=== PATIENT | female | born 1975 | race Caucasian/White ===

== ENCOUNTER 2016-11-29 23:42 | Inpatient (IN) | payer SELFPAY ==
--- NOTE | 2016-11-30 00:17 | DR.GENAD ---
HPI - PCP Primary Care Physician: NFD - Complaint/Symptoms Chief Complaint:: PT STATES" I'VE HAD THIS COUGH FOR AT LEAST 2 MONTHS IT ONLY COMES ON AFTER I GO TOO BED AND I GET REAL SHORT OF BREATH AND SOME CHEST PAIN " - Nurses notes reviewed Nurses Notes Review: Yes - Source History Provided: Patient - Mode of Arrival Mode of Arrival: Ambulatory - Timing Onset of Chief Complaint: 10/24/16 Came on: Gradually - Duration Duration: Intermittent How lon Duration: Days - Location Location: chest - Severity Severity: Moderate - Modifying Factors Worsens:: at night Improves:: sitting up - Associated Signs and Symptoms Associated Signs and Symptoms: legs swell PMH - PMH Past Medical History: No Past Surgical History: Yes Past Surgical History Comment: BREAST REDUCTION, TUBALIGATION - Family History History of Family Medical Conditions: No - Social History Alcohol Use: None Do you use any recreational Drugs:: No Lives With: Family Lives Where: Home - infectious screening In the last 2 months have you had wt loss of >10#?: NO Have you had fever, night sweats or hemotysis?: No Have you traveled outside the country in the last 6 months?: No Isolation: Standard ROS - Review of Systems Constitutional: No Symptoms Reported Eyes: No Symptoms Reported ENTM: No Symptoms Reported Respiratoy: Dry Cough, Short of Breath Cardiovascular: Edema Gastrointestinal/Abdominal: No Symptoms Reported Genitourinary: No Symptoms Reported Neurological: No Symptoms Reported Musculoskeletal: No Symptoms Reported Integumentary: No Symptoms Reported Hematologic/Lymphatic: No Symptoms Reported Endocrine: No Symptoms Reported Psychiatric: No Symptoms Reported All Other Systems: Reviewed and Negative PE - Vital Signs Vitals: Temperature 99 F Pulse Rate [Apical] 102 Pulse Rate 140 Respiratory Rate 18 Blood Pressure [Right Arm] 145/75 Blood Pressure 200/104 O2 Sat by Pulse Oximetry 97 - General Limitations: No Limitations General Appearance: Alert, In No Apparent Distress - Head Head Exam: Normal Inspection - Eyes Eye exam: Normal Appearance, EOMI. negative: Scleral Icterus, Conjunctival Injection - ENT ENT Exam: Normal Exam, Normal Oropharynx External Ear Exam: Normal External Inspection Mouth Exam: Normal Inspection - Neck Neck Exam: Normal Inspection, Full ROM, Trachea Midline - Chest Chest Inspection: Normal Inspection - Respiratory Respiratory Exam: negative: Normal Lung Sounds Bilat (ralse present), Accessory Muscle Use, Respiratory Distress Respiratory Exam: Bilateral Rales, Lower Rales - Cardiovascular Cardiovascular Exam: Tachycardia - Abdominal Exam Abdominal Exam: Normal Inspection, Normal Bowel Sounds, Soft - Extremities Extremities Exam: Edema (trace) - Back Back Exam: Normal Inspection - Neurologic Neurological Exam: Alert, Oriented X3, CN II-XII Intact - Psychiatric Psychiatric Exam: Anxious - Skin Skin Exam: Intact, Normal Color Course - Consultation Called: 01:30 Call Returned: 02:30 Consultation Comments: Case discussed with DR. Wills admit for CHF and diabetes ROR - Labs Reviewed Result Diagrams: 11/30/16 00:26 11/30/16 00:26 Laboratory: WBC 9.4 X10^3/uL (3.6-10.0) 11/30/16 00:26 RBC 4.85 X10^6/uL (3.5-5.4) 11/30/16 00:26 Hgb 11.1 g/dL (12.0-16.0) L 11/30/16 00:26 Hct 34.8 % (36.0-47.0) L 11/30/16 00:26 MCV 71.7 fL (80.0-100.0) L 11/30/16 00:26 MCH 22.9 pg (27.0-34.0) L 11/30/16 00:26 MCHC 32.0 g/dL (33.0-35.0) L 11/30/16 00:26 RDW 16.4 % (11.6-16.5) 11/30/16 00:26 Plt Count 441 X10^3/uL (150.0-450.0) 11/30/16 00:26 Plt Count Comment Adequate (ADEQUATE) 11/30/16 00:26 MPV 7.8 fL (7.4-11.0) 11/30/16 00: Neut % 63.1 % (42.0-75.0) 11/30/16 00:26 Lymph % 27.3 % (21.0-51.0) 11/30/16 00:26 Starr % 7.3 % (0.0-13.0) 11/30/16 00:26 Eos % 1.6 % (0.9-2.9) 11/30/16 00:26 Baso % 0.7 % (0.2-1.0) 11/30/16 00:26 Neut # 5.9 x10^3/uL (2.2-4.8) H 11/30/16 00: Lymph # 2.6 X10^3/uL (1.3-2.9) 11/30/16 00: Starr # 0.7 x10^3/uL (0.3-0.8) 11/30/16 00: Eos # 0.2 x10^3/uL (0.0-0.2) 11/30/16 00: Baso # 0.1 X10^3/uL (0.0-0.1) 11/30/16 00: Absolute Nucleated RBC 0.1 /100WBC 11/30/16 00:26 Plt Morphology Comment Normal (NORMAL) 11/30/16 00: RBC Morphology Abnormal (NORMAL) A 11/30/16 00: Hypochromasia 1+ A 11/30/16 00: Microcytosis 1+ A 11/30/16 00:26 Sodium 141 mmol/L (136-145) 11/30/16 00:26 Corrected Sodium 145 mmol/L (136-145) 11/30/16 00:26 Potassium 3.4 mmol/L (3.5-5.1) L 11/30/16 00: Chloride 105 mmol/L (98-107) 11/30/16 00: Carbon Dioxide 22.5 mmol/L (21-32) 11/30/16 00:26 BUN 10 mg/dL (7-18) 11/30/16 00: Creatinine 0.75 mg/dL (0.55-1.02) 11/30/16 00:26 Est GFR (MDRD) Af Amer > 60 (>60) 11/30/16 00:26 Est GFR (MDRD) Non-Af > 60 (>60) 11/30/16 00:26 Glucose 272 mg/dL (65-99) H 11/30/16 00:26 Calcium 8.8 mg/dL (8.5-10.1) 11/30/16 00:26 Corrected Calcium 9.6 mg/dL (8.5-10.1) 11/30/16 00: Total Bilirubin 0.30 mg/dL (0.2-1.0) 11/30/16 00:26 AST 109 Units/L (15-37) H 11/30/16 00:26 ALT 92 Units/L (12-78) H 11/30/16 00:26 Alkaline Phosphatase 153 Units/L (46-116) H 11/30/16 00:26 Creatine Kinase 86 Units/L (26-192) 11/30/16 00:26 CK-MB (CK-2) < 1.0 ng/mL (0-4.0) 11/30/16 00: CK/CKMB % Calc 1.2 % (<4) 11/30/16 00:26 Troponin I 0.04 ng/mL (0-1.5) 11/30/16 00:26 B-Natriuretic Peptide 279 pg/mL (0-79) H 11/30/16 00:26 Total Protein 7.3 g/dL (6.4-8.2) 11/30/16 00:26 Albumin 3.0 g/dL (3.4-5.0) L 11/30/16 00:26 Globulin 4.3 g/dL (2.5-4.5) 11/30/16 00:26 Albumin/Globulin Ratio 0.7 Ratio (1.1-2.1) L 11/30/16 00:26 - XRAY XRAY Findings: Chest: CHF - EKG Rate: 135 [place]: Normal Rhythm: ST Block: None Hypertrophy: None ST: Normal - Diagnosis Discharge Problem: Diabetes mellitus, new onset CHF (congestive heart failure) Qualifiers: Congestive heart failure type: unspecified congestive heart failure type Congestive heart failure chronicity: acute Qualified Code(s): I50.9 - Heart failure, unspecified - Discharge Plan Condition: Stable - Follow ups/Referrals Follow ups/Referrals: NFD,None [Primary Care Provider] - 3 days - Instructions
[2016-11-30] MEDS ORDERED: LOPRESSOR INJ 5 MG AMP IVP ONE (00:20)
[2016-11-30] MEDS ORDERED: LASIX IVP ONE (00:22)
[2016-11-30] MEDS ORDERED: LOPRESSOR INJ 5 MG AMP ONE (00:22)
[2016-11-30] MEDS ORDERED: LASIX ONE (00:30)
--- NOTE | 2016-11-30 00:40 | RAD ---
EXAM: Chest X-ray INDICATION: Cough COMPARISION: No prior TECHNIQUE: Single view FINDINGS: The lungs are clear and the lung volumes are within normal limits. No pleural effusion or pneumothor ax. The cardiac silhouette is mildly enlarged and there central vascular congestion. The regional s keleton is intact. IMPRESSION: There is mild cardiomegaly and central vascular congestion. Reported By:
[2016-11-30 00:43] LABS: BASOPHILS # (AUTO) 0.1 X10^3/uL (0.0-0.1); BASOPHILS % (AUTO) 0.7 % (0.2-1.0); EOSINOPHILS # (AUTO) 0.2 x10^3/uL (0.0-0.2); EOSINOPHILS % (AUTO) 1.6 % (0.9-2.9); HEMATOCRIT 34.8 % (36.0-47.0); HEMOGLOBIN 11.1 g/dL (12.0-16.0); LYMPHOCYTES # (AUTO) 2.6 X10^3/uL (1.3-2.9); LYMPHOCYTES % (AUTO) 27.3 % (21.0-51.0); MEAN CORPUSCULAR HEMOGLOBIN 22.9 pg (27.0-34.0); MEAN CORPUSCULAR VOLUME 71.7 fL (80.0-100.0); MEAN PLATELET VOLUME 7.8 fL (7.4-11.0); MONOCYTES # (AUTO) 0.7 x10^3/uL (0.3-0.8); MONOCYTES % (AUTO) 7.3 % (0.0-13.0); NEUTROPHILS # (AUTO) 5.9 x10^3/uL (2.2-4.8); NEUTROPHILS % (AUTO) 63.1 % (42.0-75.0); PLATELET COUNT 441 X10^3/uL (150.0-450.0); RED BLOOD COUNT 4.85 X10^6/uL (3.5-5.4); RED CELL DISTRIBUTION WIDTH 16.4 % (11.6-16.5); WHITE BLOOD COUNT 9.4 X10^3/uL (3.6-10.0)
[2016-11-30] MEDS ORDERED: NITROSTAT SL PRN (00:49)
[2016-11-30 00:54] LABS: BLOOD UREA NITROGEN 10 mg/dL (7-18); CALCIUM 8.8 mg/dL (8.5-10.1); CARBON DIOXIDE 22.5 mmol/L (21-32); CHLORIDE 105 mmol/L (98-107); COR NA(FOR HYPERGLY) 145 mmol/L (136-145); CREATININE 0.75 mg/dL (0.55-1.02); GLUCOSE 272 mg/dL (65-99); SODIUM 141 mmol/L (136-145); TROPONIN I 0.04 ng/mL (0-1.5); eGFR BLACK RACES > 60 (>60); eGFR NON BLACK RACES > 60 (>60)
[2016-11-30 01:04] LABS: HYPOCHROMASIA 1+; MICROCYTOSIS 1+; PLATELET MORPHOLOGY COMMENT NORMAL (NORMAL)
[2016-11-30 01:09] LABS: ALANINE AMINOTRANSFERASE 92 Units/L (12-78); ALKALINE PHOSPHATASE 153 Units/L (46-116); ASPARTATE AMINO TRANSFERASE 109 Units/L (15-37); CKMB % 1.2 % (<4); COR CA(FOR HYPOALB) 9.6 mg/dL (8.5-10.1); CREATINE KINASE 86 Units/L (26-192); CREATINE KINASE MB < 1.0 ng/mL (0-4.0); TOTAL PROTEIN 7.3 g/dL (6.4-8.2)
[2016-11-30] MEDS ORDERED: HumuLIN R IV ONE (01:14)
[2016-11-30] MEDS ORDERED: MICRO K EXTEN CAP 10 MEQ PO ONE ×2 (01:21→01:28)
[2016-11-30] MEDS ORDERED: NORMODYNE INJ 100 MG VIAL IVP ONE (01:32)
[2016-11-30] MEDS ORDERED: NORMODYNE INJ 20 MG VIAL ONE (01:34)
[2016-11-30] MEDS ORDERED: HumaLOG SC PRN (02:37)
[2016-11-30 03:21] VITALS: BMI 25.4
[2016-11-30] MEDS: HumaLOG SC PRN ×4 (05:55→21:11)
[2016-11-30] MEDS ORDERED: TYLENOL 325 MG TAB PO PRN (05:59)
[2016-11-30] MEDS ORDERED: HumaLOG SC SCH (06:30)
[2016-11-30 07:02] LABS: CHOL/HDL RATIO 5.3 (0.0-5.0); CKMB % 1.5 % (<4); CREATINE KINASE 69 Units/L (26-192); CREATINE KINASE MB < 1.0 ng/mL (0-4.0); TROPONIN I 0.05 ng/mL (0-1.5)
[2016-11-30] MEDS: LASIX IVP SCH (08:51)
[2016-11-30] MEDS: LOPRESSOR TAB 50 MG PO SCH ×2 (08:51→21:14)
[2016-11-30] MEDS: ZESTRIL TAB 10 MG PO SCH (08:51)
[2016-11-30 13:32] LABS: CKMB % 1.6 % (<4); CREATINE KINASE 63 Units/L (26-192); CREATINE KINASE MB < 1.0 ng/mL (0-4.0); TROPONIN I 0.03 ng/mL (0-1.5)
[2016-11-30] MEDS ORDERED: NS 100 ML IV 100 ML IV ONE (17:41)
--- NOTE | 2016-11-30 18:05 | DR.H&P ---
H&P - History & Physical for Day of: H&P Date: 11/30/16 - Chief Complaint Chief Complaint: COUGH, SOB, CHEST PRESSURE - Allergies Allergies/Adverse Reactions: Allergies Allergy/AdvReac Type Severity Reaction Status Date / Time No Known Drug Allergy Allergy Verified 11/29/16 23:49 - History of Present Illness History of Present Illness: 41 WF ADMITTED FROM ER AFTER PRESENTING WITH CO COUGH AND SHORTENESS OF BREATH. PT STATES COUGH WORSE AT NIGHT AND FEELS LIKE SHE WITH SMOOTHERING, WITH CHEST PRESSURE. PT CXR REVEALED CARDIOMEGALY AND PULMONARY CONGESTION. PT ALSO HAD HYPERGLYCEMIA, NO HX DIABETES. PT STATES NO REGULAR MEDS AND HX OF PIHTN, PT'S CHILDREN ARE ADULTS. PTS FATHER HAS SEVERE CAD, PAD WITH AMPUTATION. PT ADMITTED FOR SERIAL CE, EKG'S , BP AND BLOOD PRESSURE CONTROL. - Past Medical History Additional Medical History: INDUCED HYPERTENSION, RESOLVED WITH DELIVARY - Family History Family Medical History: Coronary Artery Disease, Heart Failure, Hypertension - Social History Does patient currently use any type of tobacco product: No Alcohol Use: None Drug Use: None - Medications Home Medications: NK [NK] 11/30/16 [History Confirmed 11/30/16] - Review of Systems Constitutional: Weakness Eyes: No Symptoms Reported ENT: No Symptoms Reported Respiratory: Cough, Shortness of Breath Cardiovascular: Other (CHEST PRESSURE) Gastrointestinal: No Symptoms Reported Genitourinary: No Symptoms Reported Musculoskeletal: No Symptoms Reported Skin: No Symptoms Reported - Physical Exam Vital Signs: Temperature 98 F Pulse Rate [Right Brachial] 96 Respiratory Rate 18 Blood Pressure [Right Arm] 126/74 O2 Sat by Pulse Oximetry 95 Oriented: Normal Eyes: Normal Ear: Normal Nose: Normal Throat: Normal Respiratory: RLL Diminished, LLL Diminished Cardiovascular: Normal Auscultation: Bowel Sounds: Normal Palpation: Normal Tenderness: Normal Skin: Normal Musculoskeletal: Normal Mood Description: Calm Speech Pattern: Clear, Appropriate - Assessment/Plan (1) Diabetes mellitus, new onset Status: Acute Plan: ADMIT, SSI, A1C. DIABETIC TEACHING ON ADMISSION. BS AC& HS. ENCOURAGE ORAL HYDRATION, REPEAT AM LABS (2) CHF (congestive heart failure) Qualifiers: Congestive heart failure type: unspecified congestive heart failure type Congestive heart failure chronicity: acute Qualified Code(s): I50.9 - Heart failure, unspecified Status: Acute Plan: SERIAL CE, EKG,. BP AND LIPID CONTROL, ECHO, TELEMETRY. REPEAT AM CXR, ASPIRIN, STATIN, STRICT I & OS (3) Hypertension Qualifiers: Hypertension type: H Status: Acute Plan: SEE ABOVE, CTA RENAL ARTERIES R/O RA STENOSIS (4) Chronic cough Status: Acute (5) Chest pressure Status: Acute Plan: SEE ABOVE
[2016-11-30] MEDS ORDERED: SNACK - Diabetic Appropriate PO SCH (20:00)
[2016-11-30] MEDS: ASPIRIN EC 81 MG PO SCH (20:27)
[2016-12-01] MEDS: HumaLOG SC PRN ×2 (05:47→13:13)
[2016-12-01 06:09] LABS: BASOPHILS # (AUTO) 0.1 X10^3/uL (0.0-0.1); BASOPHILS % (AUTO) 0.8 % (0.2-1.0); EOSINOPHILS # (AUTO) 0.3 x10^3/uL (0.0-0.2); EOSINOPHILS % (AUTO) 3.3 % (0.9-2.9); LYMPHOCYTES # (AUTO) 2.4 X10^3/uL (1.3-2.9); LYMPHOCYTES % (AUTO) 30.9 % (21.0-51.0); MEAN CORPUSCULAR HEMOGLOBIN 23.3 pg (27.0-34.0); MEAN CORPUSCULAR HGB CONC 32.4 g/dL (33.0-35.0); MEAN CORPUSCULAR VOLUME 72.1 fL (80.0-100.0); MEAN PLATELET VOLUME 8.2 fL (7.4-11.0); MONOCYTES # (AUTO) 0.6 x10^3/uL (0.3-0.8); MONOCYTES % (AUTO) 8.4 % (0.0-13.0); NEUTROPHILS # (AUTO) 4.3 x10^3/uL (2.2-4.8); NEUTROPHILS % (AUTO) 56.6 % (42.0-75.0); PLATELET COUNT 365 X10^3/uL (150.0-450.0); RED BLOOD COUNT 4.31 X10^6/uL (3.5-5.4); RED CELL DISTRIBUTION WIDTH 16.7 % (11.6-16.5); WHITE BLOOD COUNT 7.6 X10^3/uL (3.6-10.0)
[2016-12-01 06:26] LABS: ALANINE AMINOTRANSFERASE 81 Units/L (12-78); ALBUMIN 2.6 g/dL (3.4-5.0); ALKALINE PHOSPHATASE 114 Units/L (46-116); ASPARTATE AMINO TRANSFERASE 49 Units/L (15-37); BLOOD UREA NITROGEN 18 mg/dL (7-18); CALCIUM 8.5 mg/dL (8.5-10.1); CHLORIDE 107 mmol/L (98-107); COR CA(FOR HYPOALB) 9.6 mg/dL (8.5-10.1); COR NA(FOR HYPERGLY) 145 mmol/L (136-145); CREATININE 0.68 mg/dL (0.55-1.02); GLUCOSE 178 mg/dL (65-99); SODIUM 143 mmol/L (136-145); TOTAL PROTEIN 6.5 g/dL (6.4-8.2); eGFR BLACK RACES > 60 (>60); eGFR NON BLACK RACES > 60 (>60)
[2016-12-01 06:36] LABS: HYPOCHROMASIA 1+; MICROCYTOSIS SLIGHT; PLATELET MORPHOLOGY COMMENT NORMAL (NORMAL)
--- NOTE | 2016-12-01 06:37 | CT ---
Reported By: abdomen and pelvis with and without contrast Indication: Hypertension, evaluation for renal arterial stenosis. Technique: 3 mm axial images of the abdomen pelvis before IV contrast administration with coronal an d sagittal reformatted images with subsequent 3 mm axial images of the abdomen pelvis post IV contra st with coronal and sagittal reformatted images. No at and 3D reconstructed imaging of the abdominal aorta was performed on an independent workstation. Reduction in kV and mA was performed along with automated exposure control for radiation dose reduct ion. Nonvascular findings: Dense consolidation within the right lower and middle lobes consistent with pn eumonia. Small bilateral pleural effusions. The The liver, gallbladder, bile ducts, spleen, pancreas and adrenal glands are normal. Neither kidney d emonstrates evidence of nephrolithiasis, hydronephrosis or mass. Upper GI tract without evidence of mass or obstruction. Small fat containing periumbilical hernia. Urinary bladder is unremarkable. No pelvic or adnexal mass. Small amount of pelvic free fluid. The rectum and colon along with the appen brendon are normal. No adenopathy. Vascular findings: The descending thoracic aorta is normal. The suprarenal abdominal aorta is normal . There is widely patent SMA, hepatic, splenic, left gastric arteries, SMA and bilateral single lindsey l arteries. HOWARD is widely patent. The infrarenal abdominal aorta is normal in caliber. The iliac and common femoral arteries are widely patent bilaterally. Impression: 1.Right middle and lower lobe pneumonia with small bilateral pleural effusions. 2. Normal CT angiogram of the abdominal aorta and its branch vessels, specifically bilateral single renal arteries are widely patent without significant calcified atherosclerotic disease , stenosis or evidence of fibromuscular dysplasia. 3. Refer to above for other incidental findings.
[2016-12-01] MEDS: LOPRESSOR TAB 50 MG PO SCH (09:23)
[2016-12-01] MEDS: ASPIRIN EC 81 MG PO SCH (09:23)
[2016-12-01] MEDS: LASIX IVP SCH (09:23)
[2016-12-01] MEDS: ZESTRIL TAB 10 MG PO SCH (09:23)
[2016-12-01] MEDS ORDERED: DUONEB 0.5 MG/3 MG ONE (11:17)
[2016-12-01] MEDS ORDERED: SALINE 3% 15 ML NEB TX ONE (11:17)
[2016-12-01] MEDS ORDERED: SALINE 3% 15 ML NEB TX NEB ONE (11:19)
[2016-12-01] MEDS: DUONEB 0.5 MG/3 MG NEB SCH ×2 (11:20→14:08)
[2016-12-01 12:58] VITALS: BP 111/61
== END 2016-12-01 13:55 | disposition short-term general hospital (02) | DRG 293 ==
LOC: ER 23:42 → OBSVTOIN 11-30 02:33 → MED/SURG 11-30 02:33
PROVIDERS: ADMIT Internal Medicine; ATTEND Internal Medicine
DX: I50.9 Heart failure, unspecified (principal); R07.89 Other chest pain; R06.02 Shortness of breath; R94.31 Abnormal electrocardiogram [ECG] [EKG]; E11.65 Type 2 diabetes mellitus with hyperglycemia; I51.7 Cardiomegaly
CPT/HCPCS: 36415; 71010; 74174; 80053; 80061; 82550; 82553; 83036; 83880; 84484; 85025; 85378; 85610; 87040; 93005; 93010; 93306; 94640; 94760; 96365; 96374; 96375; 99284; A4216; A4222; J1815; J1817; J1940; J3490; J7620

== ENCOUNTER 2017-01-16 07:34 | Emergency (ER) | payer SELFPAY ==
[2017-01-16 07:42] VITALS: BP 188/92; BMI 24.5
--- NOTE | 2017-01-16 08:29 | DR.GENAD ---
HPI - PCP Primary Care Physician: HELGA - Complaint/Symptoms Chief Complaint Doctors Comments: History as stated. Denies fever or pain. She was seen in follow up two weeks ago and released by taxicab starter. Chief Complaint:: OPEN HEART INCISION OPENING UP. CABG DECEMBER 05 2016 Self Treatment fo Chief Complaint: BETADINE solution - Source History Provided: Patient - Mode of Arrival Mode of Arrival: Ambulatory - Timing Onset of Chief Complaint: 01/14/17 PMH - PMH Past Medical History: Yes Past Medical History: Diabetes, Hypertension Past Surgical History: Yes Surgical History: CABG/Valve Surgery, Tonsillectomy Past Surgical History Comment: BREAST REDUCTION, TUBAL - Family History History of Family Medical Conditions: Yes Family Medical History: Diabetes Mellitus, Cancer, MS, Heart Failure, Hypertension - Social History Does patient currently use any type of tobacco product: No Have you used tobacco products in the last 12 months: No Does any household member use tobacco: No Alcohol Use: None Do you use any recreational Drugs:: No Lives With: Spouse, Family Lives Where: Home - infectious screening In the last 2 months have you had wt loss of >10#?: NO Have you had fever, night sweats or hemotysis?: No Have you traveled outside the country in the last 6 months?: No Isolation: Standard ROS - Review of Systems Constitutional: No Symptoms Reported Eyes: No Symptoms Reported ENTM: No Symptoms Reported Respiratoy: No Symptoms Reported Cardiovascular: No Symptoms Reported Gastrointestinal/Abdominal: No Symptoms Reported Genitourinary: No Symptoms Reported Neurological: No Symptoms Reported Musculoskeletal: No Symptoms Reported Integumentary: Other (post op incision superiorl 1/4 is healing by secondary intention) Hematologic/Lymphatic: No Symptoms Reported Endocrine: No Symptoms Reported Psychiatric: No Symptoms Reported All Other Systems: Reviewed and Negative PE - Vital Signs Vitals: Temperature 98.1 F Pulse Rate 79 Respiratory Rate 18 Blood Pressure [Right Arm] 111/61 Blood Pressure 188/92 O2 Sat by Pulse Oximetry 100 - General Limitations: No Limitations General Appearance: Alert, In No Apparent Distress - Head Head Exam: Normal Inspection, Atraumatic - Eyes Eye exam: Normal Appearance, PERRL, EOMI - ENT ENT Exam: Normal Exam External Ear Exam: Normal External Inspection TM/Canal Exam: Bilateral Normal Nose Exam: Normal Nose Exam Mouth Exam: Normal Inspection Throat Exam: Normal Inspection - Neck Neck Exam: Normal Inspection - Chest Chest Inspection: Normal Inspection - Respiratory Respiratory Exam: Normal Lung Sounds Bilat Respiratory Exam: Bilateral Clear to Auscultation - Cardiovascular Cardiovascular Exam: Regular Rate - Abdominal Exam Abdominal Exam: Normal Inspection Abdominal Tenderness: negative: RUQ, RLQ, LUQ, LLQ, Epigastrium, Suprapubic, Diffuse, Mild, Moderate, Severe, Other - Extremities Extremities Exam: Normal Inspection, Full ROM - Back Back Exam: Normal Inspection - Neurologic Neurological Exam: Alert, Oriented X3, CN II-XII Intact - Psychiatric Psychiatric Exam: Normal Affect, Normal Mood - Skin Skin Exam: Warm, Dry, Other (superior 1/3 of post op surgical incision is dehised with minimal drainage. Non erythematous) Course - Treatment Treatment: Area non tender wtih minimal non purulen drainage. Area cleaned and margins aproxximated with steri strips. - Diagnosis Discharge Problem: Problem involving surgical incision - Discharge Plan Condition: Stable - Follow ups/Referrals Follow ups/Referrals: BROWN PARTIDA [Primary Care Provider] - 3 days - Instructions
== END 2017-01-16 08:37 | disposition home or self-care (01) ==
LOC: ER 07:43
DX: Z48.89 Encounter for other specified surgical aftercare (principal)
CPT/HCPCS: 99282